=== PATIENT | male | born 1965 ===

== ENCOUNTER 2017-04-01 20:01 | Emergency (ER) | payer MEDICAID ==
[2017-04-01 20:51] VITALS: BMI 42.7
[2017-04-01 20:54] VITALS: BP 125/85; PULSE 96; RESP 18; TEMP 98.4; O2SAT 96
--- NOTE | 2017-04-01 21:20 | ED PDOC ---
Arrival/HPI - General Chief Complaint: Back Pain Time Seen by Provider: 04/01/17 20:33 Historian: Patient - History of Present Illness Narrative History of Present Illness (Text): 04/01/17 21:17 This 52 yo male with pmh dm, presents to this ED c/o left lower back pain x 2 weeks. Denies trauma, fever, sob, cp, abdominal pain, GI/ incontinence, saddle anesthesia, urinary retention, urinary symptoms, or abnormal gait. Time/Duration: Other (2 weeks) Context: Home Past Medical History - Provider Review Nursing Documentation Reviewed: Yes - Infectious Disease Hx of Infectious Diseases: None - Endocrine/Metabolic Hx Diabetes Mellitus Type 2: Yes - Psychiatric Hx Substance Use: No - Anesthesia Hx Anesthesia: No Family/Social History - Physician Review Nursing Documentation Reviewed: Yes Family/Social History: No Known Family HX Smoking Status: Former Smoker Hx Alcohol Use: No Hx Substance Use: No Allergies/Home Meds Allergies/Adverse Reactions: Allergies aspirin Allergy (Verified 04/01/17 20:51) SWELLING Review of Systems - Review of Systems Constitutional: Normal. absent: Fatigue, Weight Change, Fevers Eyes: Normal ENT: Normal. absent: Sore Throat Respiratory: Normal. absent: SOB, Cough Cardiovascular: Normal. absent: Chest Pain, Palpitations Gastrointestinal: Normal. absent: Abdominal Pain, Nausea, Vomiting Genitourinary Male: Normal. absent: Dysuria, Frequency, Hematuria Musculoskeletal: Back Pain Skin: Normal Neurological: Normal Endocrine: Normal Hemo/Lymphatic: Normal Psychiatric: Normal Physical Exam Vital Signs Temp Pulse Resp BP Pulse Ox 04/01/17 20:54 98.4 F 96 H 18 125/85 96 Temperature: Afebrile Blood Pressure: Normal Pulse: Regular Respiratory Rate: Normal Appearance: Positive for: Well-Appearing, Non-Toxic, Comfortable Pain Distress: None Mental Status: Positive for: Alert and Oriented X 3 - Systems Exam Head: Present: Atraumatic, Normocephalic Pupils: Present: PERRL Extroacular Muscles: Present: EOMI Conjunctiva: Present: Normal Mouth: Present: Moist Mucous Membranes Neck: Present: Normal Range of Motion Respiratory/Chest: Present: Clear to Auscultation, Good Air Exchange. No: Respiratory Distress, Accessory Muscle Use Cardiovascular: Present: Regular Rate and Rhythm, Normal S1, S2. No: Murmurs Abdomen: Present: Normal Bowel Sounds. No: Tenderness, Distention, Peritoneal Signs Back: Present: Normal Inspection, Paraspinal Tenderness (Mild left paravertebral tenderness. No vertebral point tenderness. No vertebral step off ). No: CVA Tenderness Upper Extremity: Present: Normal Inspection. No: Cyanosis, Edema Lower Extremity: Present: Normal Inspection. No: Edema Neurological: Present: GCS=15, CN II-XII Intact, Speech Normal Skin: Present: Warm, Dry, Normal Color. No: Rashes Psychiatric: Present: Alert, Oriented x 3, Normal Insight, Normal Concentration Medical Decision Making ED Course and Treatment: 04/01/17 21:23 LS x-rays was not indicated since non trauma or heavy lifting history Patient is requesting stronger pain medication. I spoke with patient and his regarding the use of opiods medication and the risk of addiction, side effect, drowsiness, or fall. Patient understood risk, but he insisted to get a stronger pain medication. I will prescribed Tylenol #3 for pain. [place] [employer] was check and no prescription were found. Re-evaluation Time: 21:27 Reassessment Condition: Re-examined, Improved - Medication Orders Current Medication Orders: Discontinued Medications Tramadol HCl (Ultram) 100 mg PO STAT STA Stop: 04/01/17 21:24 Last Admin: 04/01/17 21:36 Dose: 100 mg Disposition/Present on Arrival - Present on Arrival Any Indicators Present on Arrival: No History of DVT/PE: No History of Uncontrolled Diabetes: No Urinary Catheter: No History of Decub. Ulcer: No History Surgical Site Infection Following: None - Disposition Have Diagnosis and Disposition been Completed?: Yes Diagnosis: Back pain Disposition: HOME/ ROUTINE Disposition Time: 21:28 Patient Plan: Discharge Condition: GOOD Discharge Instructions (ExitCare): Back Pain (ED) Additional Instructions: Call private doctor for follow up visit in 1-2 days. Take medication as instructed. Return to emergency if symptoms worsen, weakness, tingling/numbness , urinary symptoms. Do not drive or operate machinery when using Tylenol with Codeine. Prescriptions: Acetaminophen with Codeine [Tylenol with Codeine #4 Tablet] 1 each PO Q4H PRN # 15 tablet PRN Reason: Pain, Severe (8-10) Referrals: [facility] [Outside] - Follow up with primary [facility] [Outside] - Follow up with primary Forms: WORK NOTE
== END 2017-04-01 21:42 | disposition home or self-care (01) ==
LOC: ED 20:01
DX: M54.9 Dorsalgia, unspecified (principal)